=== PATIENT | male | born 1970 | race Hispanic/Latino ===

== ENCOUNTER 2017-11-03 07:29 | Emergency (ER) | payer OTHER ==
[2017-11-03] MEDS ORDERED: KETOROLAC TROMETHAMINE 60 MG/2 ML VIAL ONE (07:51)
[2017-11-03] MEDS ORDERED: DIAZEPAM 2 MG TAB ONE (07:52)
== END 2017-11-03 08:31 | disposition home or self-care (01) ==
LOC: EDH 07:29
DX: S86.811A Strain of other muscle(s) and tendon(s) at lower leg level, right leg, initial encounter (principal); I10 Essential (primary) hypertension; Z72.0 Tobacco use; X58.XXXA Exposure to other specified factors, initial encounter; Y93.89 Activity, other specified; Y92.39 Other specified sports and athletic area as the place of occurrence of the external cause; Y99.8 Other external cause status
CPT/HCPCS: 96372; 99283; J1885

== ENCOUNTER 2018-06-28 23:55 | Emergency (ER) | payer SELFPAY ==
[2018-06-29] MEDS ORDERED: KETOROLAC TROMETHAMINE 60 MG/2 ML VIAL ONE (00:09)
[2018-06-29] MEDS ORDERED: CYCLOBENZAPRINE HCL 10 MG TABLET ONE (00:10)
[2018-06-29] MEDS ORDERED: DIAZEPAM 5 MG TABLET ONE (00:11)
== END 2018-06-29 01:05 | disposition home or self-care (01) ==
LOC: EDH 23:55
DX: S39.012A Strain of muscle, fascia and tendon of lower back, initial encounter (principal); I10 Essential (primary) hypertension; Z72.0 Tobacco use; X50.0XXA Overexertion from strenuous movement or load, initial encounter; Y93.89 Activity, other specified; Y92.89 Other specified places as the place of occurrence of the external cause; Y99.8 Other external cause status
CPT/HCPCS: 96372; 99283; J1885

== ENCOUNTER 2018-10-22 15:00 | Emergency (ER) | payer OTHER ==
[2018-10-22] MEDS ORDERED: ASPIRIN 325 MG TABLET ONE (15:24)
[2018-10-22 15:30] LABS: BASOPHILS % (AUTO) 0.1 % (0.0-5.0); EOSINOPHILS % (AUTO) 3.3 % (0.0-8.0); HEMATOCRIT 42.3 % (42-54); LYMPHOCYTES % (AUTO) 25.9 % (21.0-51.0); MEAN CORPUSCULAR HEMOGLOBIN 30.2 pg (27.0-33.0); MEAN CORPUSCULAR HGB CONC 33.5 g/dL (32.0-36.0); MEAN CORPUSCULAR VOLUME 90.4 fL (79-99); MONOCYTES % (AUTO) 8.7 % (3.0-13.0); NUCLEATED RED BLOOD CELLS 0.1 % (0.0-0.19); PLATELET COUNT (AUTO) 306 K/uL (130-400); RED BLOOD CELL COUNT(AUTO) 4.67 MIL/uL (4.50-6.20); WHITE BLOOD COUNT (AUTO) 10.1 K/uL (4.8-10.8)
[2018-10-22 15:39] LABS: CREATININE 1.1 mg/dL (0.5-1.5)
[2018-10-22 15:41] LABS: INR 0.9 (0.85-1.15); PARTIAL THROMBOPLASTIN TIME 26.7 SEC (26.3-35.5); PROTHROMBIN TIME 9.5 SEC (9.6-11.6)
[2018-10-22 15:44] LABS: ALBUMIN 3.5 g/dL (3.5-5.0); BILIRUBIN,TOTAL 0.1 mg/dL (0.2-1.0); TOTAL PROTEIN, SERUM 7.5 g/dL (6.0-8.3)
[2018-10-22] MEDS ORDERED: NITROGLYCERIN 1GM/1 INCH PACKET TD ONE (15:58)
[2018-10-22 16:53] LABS: APPEARANCE,URINE Clear (CLEAR); BILIRUBIN,URINE Negative (NEGATIVE); COLOR,URINE Yellow (YELLOW); GLUCOSE, URINE (UA) Negative (NEGATIVE); KETONES,URINE Negative (NEGATIVE); LEUKOCYTE ESTERASE ,URINE Negative (NEGATIVE); NITRATE,URINE Negative (NEGATIVE); OCCULT BLOOD,URINE Negative (NEGATIVE); PH,URINE 6.5 (5.0-8.0); PROTEIN,URINE Negative (NEGATIVE)
[2018-10-22 17:01] LABS: AMPHET/METH SCREEN,URINE POSITIVE (NEGATIVE); BARBITURATE SCREEN, URINE NEGATIVE (NEGATIVE); BENZODIAZEPINES SCREEN,URINE NEGATIVE (NEGATIVE); CANNABINOID SCREEN,URINE NEGATIVE (NEGATIVE); COCAINE SCREEN,URINE POSITIVE (NEGATIVE); OPIATE SCREEN,URINE NEGATIVE (NEGATIVE); PHENCYCLIDINE SCREEN,URINE NEGATIVE (NEGATIVE)
== END 2018-10-22 19:06 | disposition home or self-care (01) ==
LOC: EDH 15:00
DX: I10 Essential (primary) hypertension (principal); F14.10 Cocaine abuse, uncomplicated; R07.89 Other chest pain; Z72.0 Tobacco use
CPT/HCPCS: 36415; 71045; 80053; 80305; 81003; 82550; 83880; 84484; 85025; 85610; 85730; 93005

== ENCOUNTER 2023-12-03 19:53 | Emergency (ER) | payer OTHER ==
[~2023-12-03] VITALS: Ht 172.7 cm; Wt 112.0 kg
[2023-12-03 19:56] VITALS: BP 140/92; PULSE 82; RESP 18
[2023-12-03 20:21] LABS: ADD UA MICROSCOPIC YES; APPEARANCE,URINE CLEAR (CLEAR); BILIRUBIN,URINE NEGATIVE (NEGATIVE); COLOR,URINE LIGHT-YELLOW (YELLOW); GLUCOSE, URINE (UA) NEGATIVE (NEGATIVE); KETONES,URINE NEGATIVE (NEGATIVE); LEUKOCYTE ESTERASE ,URINE NEGATIVE Leu/uL (NEGATIVE); NITRATE,URINE NEGATIVE (NEGATIVE); OCCULT BLOOD,URINE LARGE (NEGATIVE); PROTEIN,URINE NEGATIVE (NEGATIVE); UROBILINOGEN,URINE 0.2 mg/dL (0.2-1.0)
[2023-12-03 20:23] LABS: BACTERIA,URINE RARE /HPF (None Seen); RBC,URINE 51-100 /HPF (0-1); YEAST,URINE BUDDING FEW /HPF (None Seen)
[2023-12-03] MEDS ORDERED: AMOX1TAB16 PO (20:30)
[2023-12-03] MEDS ORDERED: IBUP-2077 PO (20:30)
[2023-12-03] MEDS ORDERED: PHEN-847 PO (20:30)
[2023-12-03] MEDS: PHENAZOPYRIDINE HCL 200 MG TABLET PO ONE (20:37)
[2023-12-03] MEDS: AMOX/CLAV 875/125MG TAB PO ONE (20:37)
[2023-12-03] MEDS: HYDROCODONE/ACETAMINOPHEN 5/325 MG TAB PO ONE (20:37)
== END 2023-12-03 21:17 | disposition home or self-care (01) ==
LOC: EDH 19:53
DX: N30.01 Acute cystitis with hematuria (principal); R30.0 Dysuria; E11.9 Type 2 diabetes mellitus without complications
CPT/HCPCS: 81001

== ENCOUNTER 2024-10-06 18:07 | Emergency (ER) | payer BC, OTHER ==
[~2024-10-06] VITALS: Ht 172.7 cm; Wt 92.5 kg
[~2024-10-06 18:07] MED LIST: AMOX1TAB16 PO; IBUP-2077 PO; PHEN-847 PO
--- NOTE | 2024-10-06 18:20 | ERN ---
ED Note History of Present Illness Stated Complaint: CRUSHED FINGER Chief Complaint: Finger Injury Time Seen by MD: 18:09 Time Seen by Midlevel: 18:10 Dictation: Mr. Foley is a 54-year-old male with history of hypertension and type 2 diabetes (no longer on medication following weight loss) who presented to the emergency department this evening for evaluation of finger injury. States that yesterday he dropped a 35 lb weight onto his left hand (patient is left-hand dominant) resulting in small laceration. Throughout the night he experienced throbbing pain and has had increased swelling. He states today he went to a an urgent care clinic and they performed wound care but recommended he go to the hospital for x-ray due to crush injury. He also went to the [facility] free-standing emergency center but wait was too long. He has a flight out of the [place] early in the AM. He has been taking Ibuprofen 800mg for pain. He denies additional injury or concerns. Allergies: Coded Allergies: No Known Allergies (Unverified Allergy, Unknown, 12/03/23) Home Meds Active Scripts Ibuprofen (Ibuprofen 800 mg Tab) 800 Mg Tab, 800 MG PO Q8H PRN for fever or pain, #30 TAB 0 Refills Prov:BRISEIDA SANTOS NP 12/03/23 Phenazopyridine HCl (Pyridium) 200 Mg Tab, 200 MG PO TIDPC for 5 Days, #15 TAB TAKE WITH FOOD TO PREVENT STOMACH UPSET. Prov:BRISEIDA SANTOS NP 12/03/23 Amoxicillin/Potassium Clav (Amox Tr-K Clv 875-125 mg Tab) 875 Mg-125 Mg Tablet, 1 EACH PO BID for 7 Days, #14 TAB 0 Refills Prov:BRISEIDA SANTOS NP 12/03/23 Past Medical History Past Medical History: Diabetes-Type II, Hypertension Surgical History: Other Surgical History Other: LEFT HAND CARPAL TUNNEL Social History: Negative RN Note Reviewed/Agreed w/PFSH: Yes Review of System Dictation REVIEW OF SYSTEMS: CONSTITUTIONAL: Patient denies fevers, chills, sweats and weight changes. EYES: Patient denies any visual symptoms. EARS, NOSE, AND THROAT: No difficulties with hearing. No symptoms of rhinitis or sore throat. CARDIOVASCULAR: Patient denies chest pains, palpitations, orthopnea and paroxysmal nocturnal dyspnea. RESPIRATORY: No dyspnea on exertion, no wheezing or cough. GI: No nausea, vomiting, diarrhea, constipation, abdominal pain, hematochezia or melena. : No urinary hesitancy or dribbling. No nocturia or urinary frequency. No abnormal urethral discharge. MUSCULOSKELETAL: Throbbing pain and swelling to left ring finger following crush injury with 35 lb weight NEUROLOGIC: No chronic headaches, no seizures. Patient denies numbness, tingling or weakness. PSYCHIATRIC: Patient denies problems with mood disturbance. No problems with anxiety. ENDOCRINE: No excessive urination or excessive thirst. DERMATOLOGIC: Patient denies any rashes or skin changes. Initial Vital Sign VS Vital Signs Date Time Temp Pulse Resp B/P (MAP) Pulse Ox O2 Delivery O2 Flow Rate FiO2 10/06/24 18:12 98.6 77 16 146/72 98 Room Air 0 10/06/24 18:18 21 Physical Exam Dictation Vital signs: Reviewed. Afebrile Constitutional: No acute distress. Non-toxic appearing. Head/Face: Normocephalic, atraumatic. Eyes: Periorbital areas with no swelling, redness, or edema. Lids and lashes are normal. Conjunctival injection is absent. Sclera anicteric. Pupils equal, round, reactive to light. ENT: Pinnas intact and no signs of trauma or erythema. Ear canals clear and no discharge. TMs no erythema. No nasal discharge or bleeding noted. Oropharynx with no exudate, redness, swelling, masses, exudates, or evidence of obstruction. Uvula midline. Mucous membranes moist. Neck: Trachea midline, no masses palpated, and no cervical lymphadenopathy. No swelling. Supple, full range of motion. Chest/Axilla: No tenderness, no crepitus, no paradoxical movement, no retractions. Cardiovascular: Regular rate, regular rhythm, no murmur, no gallops. Symmetric pulses. No peripheral edema. Respiratory: Respirations even and unlabored. Lung sounds clear; no wheezes, rales or rhonchi. Room air SpO2 99% Gastrointestinal: Inspection is normal. No distention is appreciated. Bowel sounds are normal. No mass or organomegaly . There is no tenderness. No rebound. No rigidity. No voluntary or involuntary guarding. No Shook's sign. Neurological: Normal speech, gross motor function intact, gross sensory function intact. No focal weakness/Paresthesia. Musculoskeletal/Extremities: All extremities have full range of motion. The left ring finger has swelling to distal/middle phalanx. He does have good color, warmth, and sensation distal. Capillary refill less than 2 seconds Integumentary: Skin is normal color, warm and dry. Cap refill less than 2 seconds. 0.75 cm laceration lateral aspect of the left finger. ED Course ED Course Orders Procedure Category Date Status Time Hydrocodone/Apap PHA 10/06/24 Complete 5/325 ([place] 5/325mg) 18:30 Finger(S) 2+Vws Lt RAD 10/06/24 Taken 18:21 Tetanus,Diphtheria PHA 10/06/24 Complete Tox [Adult] (Diphther 18:30 Current Medications Medications (Trade) Dose Ordered Sig/Lorie Route PRN Reason Start Time Stop Time Status Last Admin Dose Admin Acetaminophen/ Hydrocodone Bitart (NORco 5/325MG) 1 tab ONCE ONCE PO 10/06/24 18:30 10/06/24 18:31 DC 10/06/24 18:29 Tetanus/ Diphtheria Toxoids Adsorbed (DiphthERIA-teTANUS TOXOID [ADULT]/ DECAVAC) 0.5 ml ONCE ONCE IM 10/06/24 18:30 10/06/24 18:31 DC 10/06/24 18:29 Vital Signs Date Time Temp Pulse Resp B/P (MAP) Pulse Ox O2 Delivery O2 Flow Rate FiO2 10/06/24 18:18 98.8 78 20 131/65 98 Room Air* 0 21 10/06/24 18:12 98.6 77 16 146/72 98 Room Air 0 Uneventful ED course. Vital signs remained stable; afebrile with room air SpO2 98%. He received doses [place] and tetanus was updated. He received inital dose Augmentin. Small laceration steri-strips applied (patient declined suturing). Wound was dressed left ring finger was splinted and angel taped to the left middle finger. He has good color, warmth, sensation and cap refill < 2 seconds distal. Instructions to patient. He will be travelling around [place] and plans for follow up in [facility]. Medical Decision Making MDM MDM: Differential diagnosis: Finger fracture, contusion Rationale: Tests considered and ordered secondary to shared decision making include: X-ray Previous outside records reviewed: Old ER visits. Risk of complication and/or morbidity or mortality of patient management: None Medications-Per medication reconciliation Need for hospitalization: Patient does not meet criteria for hospitalization. Need for emergency major/minor surgery: No There are no social concerns with this patient. Prescription drug management: Ibuprofen, Tramadol, Augmentin Prescriptions will include symptomatic care Patient's prior external medical records from other ER visits were reviewed by me as indicated. Prior testing and results from previous visits were reviewed. Prior tests were taken into account with medical decision making and resource utilization, independent historian/historians were used to obtain complete medical history. I independently interpreted the test that were performed, results were reviewed by me and considered findings on radiology if ordered. Medical management and examination interpretation discussions were had by me with other qualified healthcare professionals as indicated for the patient's c are. DX & DISP Disposition: Discharge Departure Impression: Primary Impression: Fracture of finger of left hand Additional Impression: Fracture, finger, distal phalanx Condition: Stable Scripts Amoxicillin/Potassium Clav (Amox Tr-K Clv 875-125 mg Tab) 875 Mg-125 Mg Tablet 1 TAB PO BID for 10 Days, #20 TAB 0 Refills Prov: LUIS GARCIAS NP 10/06/24 Tramadol HCl/Acetaminophen (Tramadol-Acetaminophn 37.5-325) 37.5 Mg-325 Mg Tablet 1 EACH PO q 8 hours PRN, #12 TAB 0 Refills Prov: LUIS GARCIAS NP 10/06/24 Ibuprofen (Ibuprofen) 600 Mg Tablet 600 MG PO Q6H PRN for PAIN, #1 TAB 0 Refills Prov: LUIS GARCIAS NP 10/06/24 Additional Instructions: Ice. Elevation. Splint to finger/angel tape to middle finger. May continue Tylenol or Ibuprofen every 6-8 hours as needed for pain. May take Tramadol as needed for worsening pain. Augmentin BID x 10 days. Monitor color, warmth, sensation and capillary refill distal finger. Follow up with your PCP for referral to hand specialist. Return to ED for worsening of symptoms or concerns Referrals: AMBROSIO CHAVEZ NP (PCP) Time of Disposition: 19:45 LUIS GARCIAS NP Oct 06, 2024 18:20
[2024-10-06] MEDS: teTANUS/diphthERIA TOXOID [ADULT] 0.5 ML VIAL IM ONE (18:29)
[2024-10-06] MEDS: HYDROcodone/APAP 5/325 1 TAB TABLET PO ONE (18:29)
[2024-10-06] MEDS ORDERED: TRAM-543 PO (19:40)
[2024-10-06] MEDS ORDERED: IBUP-2070 PO (19:40)
[2024-10-06] MEDS ORDERED: AMOX1TAB16 PO (19:45)
[2024-10-06] MEDS: AMOX/CLAV 875/125MG TAB PO ONE (19:53)
--- NOTE | 2024-10-06 20:13 | HMCIMG ---
FINGER(S) 2+VWS LT CLINICAL HISTORY: crush injury 24 hours ago COMPARISON: None TECHNIQUE: AP lateral and oblique images were obtained. FINDINGS: There is a comminuted nondisplaced fracture of the fourth distal tuft. The overlying soft tissues are edematous. There is no radiopaque foreign body. IMPRESSION: Nondisplaced fourth distal tuft fracture
[2024-10-06 20:17] VITALS: BP 127/68; PULSE 74; RESP 18; TEMP 98.1; O2SAT 98
== END 2024-10-06 20:26 | disposition home or self-care (01) ==
LOC: EDH 18:07
DX: S62.635A Displaced fracture of distal phalanx of left ring finger, initial encounter for closed fracture (principal); S61.215A Laceration without foreign body of left ring finger without damage to nail, initial encounter; E11.9 Type 2 diabetes mellitus without complications; I10 Essential (primary) hypertension; X58.XXXA Exposure to other specified factors, initial encounter; Y93.89 Activity, other specified; Y92.89 Other specified places as the place of occurrence of the external cause; Y99.8 Other external cause status
CPT/HCPCS: 29130; 73140; 90471; 90714; 99284